=== PATIENT | male | born 1985 | race African-American/Black ===

== ENCOUNTER 2020-02-21 23:24 | Observation (INO) ==
[2020-02-22] MEDS ORDERED: ONDANSETRON 4 MG/2 ML VIAL IV PRN (01:58)
[2020-02-22] MEDS ORDERED: ACETAMINOPHEN 325 MG TABLET PO PRN (01:58)
[2020-02-22] MEDS: SODIUM CHLORIDE 0.9% 1,000 ML IV SCH (02:37)
[2020-02-22] MEDS: HYDROmorphone 2 MG/1 ML VIAL IV PRN ×3 (02:40→16:19)
[2020-02-22] MEDS: metroNIDAZOLE INJ 500 MG in PREMIX 1 EACH IV SCH ×3 (02:41→19:07)
[2020-02-22] MEDS: PIPERACILLIN/TAZOBACTAM 3,375 MG in SODIUM CHLORIDE 0.9% 100 ML IV SCH ×3 (03:52→21:47)
[2020-02-22 06:20] LABS: Basophils # 0.1 10*3/uL (0.0-0.2); Basophils % 0.6 % (0.0-0.8); Eosinophils # 0.4 10*3/uL (0.0-0.87); Eosinophils % 3.2 % (0.00-10.9); Hematocrit 36.7 VOL% (42.0-52.0); Hemoglobin 11.4 GM/DL (14.0-18.0); Immature Granulocytes % 0.7 %; Immature Granulocytes Absolute 0.08 #; Lymphocytes # 3.2 10*3/uL (1.4-4.0); Lymphocytes % 26.4 % (21.2-54.2); Mean Corpuscular HGB Conc 31.1 GM/DL (32-36); Mean Platelet Volume 10.4 FL (9.6-12.0); Monocytes % 6.9 % (1.7-12.7); Neutrophils % 62.2 % (38.7-73.9); Platelet Count 360 T/CUMM (130-400); Red Blood Count 4.59 MC/CUMM (3.8-5.5); Red Cell Distribution Width 13.4 % (9.3-17.3); White Blood Count 12.3 T/CUMM (4-12)
[2020-02-22 06:39] LABS: Albumin 2.9 G/DL (3.4-5.0); Bilirubin,Total 0.6 MG/DL (0.2-1.0); Calcium 8.5 MG/DL (8.5-10.1); Osmolality,Calculated 276.4 MOS/KG (273-304); Total Protein 7.1 G/DL (6.4-8.3)
[2020-02-22] MEDS ORDERED: INFLUENZA VIRUS VACCINE 0.5 ML SYRINGE IM ONE (09:00)
[2020-02-22] MEDS: PANTOPRAZOLE 40 MG VIAL IV SCH (10:43)
[2020-02-23] MEDS: SODIUM CHLORIDE 0.9% 1,000 ML IV SCH ×3 (00:39→05:57)
[2020-02-23] MEDS: metroNIDAZOLE INJ 500 MG in PREMIX 1 EACH IV SCH (02:41)
[2020-02-23] MEDS: PIPERACILLIN/TAZOBACTAM 3,375 MG in SODIUM CHLORIDE 0.9% 100 ML IV SCH (05:30)
[2020-02-23 07:46] LABS: Basophils # 0.1 10*3/uL (0.0-0.2); Basophils % 0.6 % (0.0-0.8); Eosinophils # 0.6 10*3/uL (0.0-0.87); Eosinophils % 5.7 % (0.00-10.9); Hematocrit 35.3 VOL% (42.0-52.0); Hemoglobin 10.9 GM/DL (14.0-18.0); Immature Granulocytes % 0.7 %; Immature Granulocytes Absolute 0.07 #; Lymphocytes # 4.3 10*3/uL (1.4-4.0); Lymphocytes % 42.3 % (21.2-54.2); Mean Corpuscular HGB Conc 30.9 GM/DL (32-36); Mean Corpuscular Volume 78.8 FL (87-102); Mean Platelet Volume 9.7 FL (9.6-12.0); Monocytes % 7.7 % (1.7-12.7); Platelet Count 366 T/CUMM (130-400); Red Blood Count 4.48 MC/CUMM (3.8-5.5); Red Cell Distribution Width 13.3 % (9.3-17.3); White Blood Count 10.1 T/CUMM (4-12)
[2020-02-23 08:04] LABS: Calcium 8.3 MG/DL (8.5-10.1); Osmolality,Calculated 273.5 MOS/KG (273-304)
[2020-02-23 08:23] LABS: Atypical Lymphocytes Few; Eosinophils 2 % (0-10); Hypochromasia 2+; Lymphocytes 39 % (20-55); Segmented Neutrophils 50 % (50-85); Total Cells Counted 100
[2020-02-23 08:24] LABS: Microcytosis 1+; Platelet Estimate Normal; Target Cells Slight
[2020-02-23] MEDS ORDERED: AMOXICILLIN/CLAV 875 MG TABLET PO SCH (09:00)
[2020-02-23] MEDS: PANTOPRAZOLE 40 MG VIAL IV SCH (09:01)
[2020-02-23 11:40] VITALS: BP 113/43
== END 2020-02-23 12:52 | disposition home or self-care (01) ==
LOC: N.ED 23:24 → N.EDINP 02-22 00:42 → INTOOBSV 02-22 00:42 → N.3E 02-22 01:50
PROVIDERS: ADMIT Surgery; ATTEND Surgery

== ENCOUNTER 2021-10-28 05:50 | Inpatient (IN) ==
[2021-10-23 12:30] LABS: Basophils # 0.1 10*3/uL (0.0-0.2); Basophils % 0.5 % (0.0-0.8); Eosinophils # 0.2 10*3/uL (0.0-0.87); Eosinophils % 1.6 % (0.00-10.9); Hematocrit 41.9 VOL% (42.0-52.0); Hemoglobin 12.9 GM/DL (14.0-18.0); Immature Granulocytes % 0.4 %; Immature Granulocytes Absolute 0.04 #; Lymphocytes # 4.8 10*3/uL (1.4-4.0); Lymphocytes % 52.2 % (21.2-54.2); Mean Corpuscular HGB Conc 30.8 GM/DL (32-36); Monocytes # 0.7 10*3/uL (0.11-0.8); Monocytes % 7.3 % (1.7-12.7); Platelet Count 229 T/CUMM (130-400); Red Blood Count 5.05 MC/CUMM (3.8-5.5); White Blood Count 9.2 T/CUMM (4-12)
[2021-10-23 12:49] LABS: Calcium 8.9 MG/DL (8.5-10.1); Osmolality,Calculated 277.4 MOS/KG (273-304); Potassium 4.1 MMOL/L (3.5-5.1)
[2021-10-23 12:53] LABS: Eosinophils 3 % (0-10); Lymphocytes 45 % (20-55); Platelet Estimate Adequate; Total Cells Counted 100
[2021-10-28] MEDS ORDERED: ERTAPENEM 1,000 MG in SODIUM CHLORIDE 0.9% 100 ML IV ONE (06:00)
[2021-10-28] MEDS ORDERED: ALVIMOPAN 12 MG CAPSULE PO ONE (06:00)
[2021-10-28] MEDS: LACTATED RINGERS 1,000 ML IV SCH ×3 (07:31→14:59)
[2021-10-28] MEDS ORDERED: propofoL 200 MG/20 ML VIAL IV ONE ×2 (08:52→11:03)
[2021-10-28] MEDS ORDERED: ROCURONIUM 50 MG/5 ML VIAL IV ONE (08:52)
[2021-10-28] MEDS ORDERED: fentaNYL 100 MCG/2 ML VIAL ONE ×2 (08:52→10:13)
[2021-10-28] MEDS ORDERED: LIDOCAINE 2% 5 ML VIAL ONE (08:52)
[2021-10-28] MEDS ORDERED: MIDAZOLAM 2 MG/2 ML VIAL ONE (08:52)
[2021-10-28] MEDS ORDERED: TISSUE ADHESIVE 1 EACH APPLICATOR TOP ONE (09:07)
[2021-10-28] MEDS ORDERED: DEXAMETHASONE 4 MG/1 ML VIAL ONE (09:08)
[2021-10-28] MEDS ORDERED: ROPIVACAINE 0.5% 30 ML VIAL ONE (09:09)
[2021-10-28] MEDS ORDERED: LIDOCAINE 1% 5 ML VIAL ONE (09:09)
[2021-10-28] MEDS ORDERED: INDOCYANINE GREEN 25 MG VIAL IV ONE ×2 (10:58)
[2021-10-28] MEDS ORDERED: SUGAMMADEX 200 MG/2 ML VIAL IV ONE (11:22)
[2021-10-28] MEDS ORDERED: SEVOFLURANE 1 UNIT/15 MINUTE INH ONE (11:26)
[2021-10-28] MEDS ORDERED: MEPERIDINE 50 MG/1 ML VIAL ONE (11:55)
[2021-10-28] MEDS ORDERED: ONDANSETRON 4 MG/2 ML VIAL ONE (11:55)
[2021-10-28] MEDS: MEPERIDINE 25 MG/1 ML VIAL IV PRN ×2 (11:56→12:06)
[2021-10-28] MEDS ORDERED: ONDANSETRON 4 MG/2 ML VIAL IV PRN ×2 (11:58→14:14)
[2021-10-28] MEDS ORDERED: HYDROmorphone 1 MG/1 ML SYRINGE ONE (12:24)
[2021-10-28] MEDS: HYDROmorphone 1 MG/1 ML SYRINGE IV PRN ×3 (12:25→20:26)
[2021-10-28] MEDS ORDERED: KETOROLAC 30 MG/1 ML VIAL IV SCH (14:30)
[2021-10-28 14:40] LABS: Basophils % 0.3 % (0.0-0.8); Eosinophils % 0.1 % (0.00-10.9); Hematocrit 43.2 VOL% (42.0-52.0); Hemoglobin 13.1 GM/DL (14.0-18.0); Immature Granulocytes % 0.4 %; Immature Granulocytes Absolute 0.05 #; Lymphocytes # 1.5 10*3/uL (1.4-4.0); Lymphocytes % 13.4 % (21.2-54.2); Mean Corpuscular HGB Conc 30.3 GM/DL (32-36); Mean Corpuscular Volume 82.9 FL (87-102); Mean Platelet Volume 10.1 FL (9.6-12.0); Monocytes # 0.3 10*3/uL (0.11-0.8); Monocytes % 2.7 % (1.7-12.7); Neutrophils % 83.1 % (38.7-73.9); Platelet Count 237 T/CUMM (130-400); Red Blood Count 5.21 MC/CUMM (3.8-5.5); White Blood Count 11.2 T/CUMM (4-12)
[2021-10-28 14:53] LABS: Calcium 8.9 MG/DL (8.5-10.1); Osmolality,Calculated 275.5 MOS/KG (273-304); Potassium 4.4 MMOL/L (3.5-5.1)
[2021-10-28 14:59] LABS: Platelet Estimate Adequate
[2021-10-28] MEDS: ALVIMOPAN 12 MG CAPSULE PO SCH (20:12)
[2021-10-28] MEDS ORDERED: MINERAL OIL/PETROLATUM OPH OINT 3.5 GM TUBE LEFT EYE SCH (21:00)
[2021-10-28] MEDS: KETOROLAC 30 MG/1 ML VIAL IV SCH (23:07)
[2021-10-29] MEDS: LACTATED RINGERS 1,000 ML IV SCH (01:31)
[2021-10-29] MEDS: KETOROLAC 30 MG/1 ML VIAL IV SCH ×2 (02:54→09:59)
[2021-10-29 03:29] LABS: Basophils % 0.2 % (0.0-0.8); Eosinophils % 0.1 % (0.00-10.9); Hematocrit 38.5 VOL% (42.0-52.0); Hemoglobin 11.7 GM/DL (14.0-18.0); Immature Granulocytes % 0.4 %; Immature Granulocytes Absolute 0.05 #; Lymphocytes # 3.4 10*3/uL (1.4-4.0); Lymphocytes % 23.8 % (21.2-54.2); Mean Corpuscular HGB Conc 30.4 GM/DL (32-36); Mean Corpuscular Volume 81.4 FL (87-102); Mean Platelet Volume 10.7 FL (9.6-12.0); Monocytes % 7.3 % (1.7-12.7); Neutrophils % 68.2 % (38.7-73.9); Platelet Count 230 T/CUMM (130-400); Red Blood Count 4.73 MC/CUMM (3.8-5.5); Red Cell Distribution Width 13.5 % (9.3-17.3); White Blood Count 14.2 T/CUMM (4-12)
[2021-10-29 03:48] LABS: Osmolality,Calculated 275.5 MOS/KG (273-304); Potassium 3.9 MMOL/L (3.5-5.1)
[2021-10-29] MEDS: HYDROmorphone 1 MG/1 ML SYRINGE IV PRN (05:44)
[2021-10-29] MEDS ORDERED: ENOXAPARIN 40 MG/0.4 ML SYRINGE SUBCUT SCH (06:00)
[2021-10-29 09:05] VITALS: BP 119/67
[2021-10-29] MEDS: ALVIMOPAN 12 MG CAPSULE PO SCH (09:59)
== END 2021-10-29 11:09 | disposition home or self-care (01) | DRG 231 ==
LOC: N.OR 05:50 → N.SDSINP 05:51 → N.3E 14:09
PROVIDERS: ADMIT Surgery; ATTEND Surgery